=== PATIENT | female | born 1990 | race Caucasian/White ===

== ENCOUNTER 2022-11-14 17:33 | Emergency (ER) | payer MEDICAID ==
[2022-11-14] MEDS ORDERED: Ketorolac 30 MG/ML SDV IM ONE (19:19)
[2022-11-14] MEDS ORDERED: Cyclobenzaprine 10 MG Tab PO ONE (19:20)
== END 2022-11-14 19:40 | disposition left against medical advice (07) ==
LOC: JP.ED 17:33
DX: M54.2 Cervicalgia (principal); M26.602 Left temporomandibular joint disorder, unspecified; Z72.0 Tobacco use; Z88.1 Allergy status to other antibiotic agents; Z88.8 Allergy status to other drugs, medicaments and biological substances
CPT/HCPCS: 99283

== ENCOUNTER 2023-01-14 11:45 | Emergency (ER) | payer MEDICAID ==
[2023-01-14] MEDS ORDERED: HYDROmorphone 1 MG/ML Syringe IM ONE (14:42)
== END 2023-01-14 15:12 | disposition home or self-care (01) ==
LOC: JP.ED 11:45
DX: G89.18 Other acute postprocedural pain (principal); Z88.1 Allergy status to other antibiotic agents; Z88.8 Allergy status to other drugs, medicaments and biological substances
CPT/HCPCS: 96372; 99282; J1170

== ENCOUNTER 2023-01-22 11:36 | Emergency (ER) | payer MEDICAID | END 2023-01-22 12:52 | disposition home or self-care (01) | LOC: JP.ED 11:36 | DX: K08.89 Other specified disorders of teeth and supporting structures (principal); Z88.1 Allergy status to other antibiotic agents; Z88.8 Allergy status to other drugs, medicaments and biological substances; Z98.818 Other dental procedure status | CPT/HCPCS: 99282 ==